=== PATIENT | female | born 1990 | race Asian ===

== ENCOUNTER 2017-01-16 18:30 | Inpatient (IN) | payer MEDICAID, SELFPAY ==
[~2017-01-16] VITALS: Ht 170.2 cm; Wt 60.3 kg
[2017-01-16] MEDS ORDERED: PREN-380 PO (19:17)
[2017-01-16 19:40] VITALS: BP 124/81
[2017-01-16] MEDS ORDERED: OXYTOCIN 10 UNITS/ML VIAL IM SCH (19:55)
[2017-01-16] MEDS ORDERED: PROMETHAZINE 25 MG/ML VIAL IVP PRN (19:55)
[2017-01-16] MEDS ORDERED: METHYLERGONOVINE 0.2 MG/ML AMP IM PRN (19:55)
[2017-01-16] MEDS ORDERED: NALBUPHINE HYDROCHLORIDE 10 MG/ML VIAL IVP PRN (19:55)
[2017-01-16] MEDS ORDERED: LACTATED RINGERS 500 ML IV SCH (19:55)
[2017-01-16] MEDS ORDERED: CARBOPROST 250 MCG/ML AMP IM PRN (19:55)
[2017-01-16] MEDS ORDERED: AMPICILLIN 2,000 MG in NACL 0.9% MINI-BAG PLUS 100 ML IV SCH (19:55)
[2017-01-16] MEDS ORDERED: OXYTOCIN 20 UNITS in LACTATED RINGERS 1,000 ML IV SCH (20:44)
[2017-01-16 20:53] LABS: APPEARANCE,URINE HAZY (CLEAR); BILIRUBIN,URINE NEGATIVE (NEGATIVE); BLOOD, URINE 3+ (NEGATIVE); COLOR,URINE YELLOW (YELLOW); LEUKOCYTE ESTERASE ,URINE NEGATIVE (NEGATIVE); NITRITE, URINE NEGATIVE (NEGATIVE); UGLUCOSE 2+ (NEGATIVE)
[2017-01-16] MEDS ORDERED: OXYTOCIN 20 UNITS/LR PREMIX 1,000 ML IV ONE (20:54)
[2017-01-16 20:57] LABS: BASOPHILS # (AUTO) 0.1 K/uL (0.00-0.22); BASOPHILS % (AUTO) 0.8 % (0.0-2.0); EOSINOPHILS # (AUTO) 0.1 K/uL (0-0.4); EOSINOPHILS % (AUTO) 0.6 % (0.0-4.0); HEMATOCRIT 38.9 % (36-48); HEMOGLOBIN 13.2 g/dL (12.0-16.0); LYMPHOCYTES % (AUTO) 23.7 % (20.5-51.1); MEAN CORPUSCULAR HEMOGLOBIN 32 pg (27-31); MEAN CORPUSCULAR HGB CONC 34 g/dL (33-37); MEAN CORPUSCULAR VOLUME 93 fL (80-94); MONOCYTES # (AUTO) 0.7 K/uL (0.8-1.0); MONOCYTES % (AUTO) 7.7 % (1.7-9.3); NEUTROPHILS # (AUTO) 5.6 K/uL (1.8-7.7); NEUTROPHILS % (AUTO) 67.2 % (42.2-75.2); PLATELET COUNT (AUTO) 158 K/uL (140-450); RED BLOOD CELL COUNT(AUTO) 4.18 MIL/uL (4.20-5.40); RED CELL DISTRIBUTION WIDTH 12.9 % (11.6-13.7); WHITE BLOOD COUNT (AUTO) 8.5 K/uL (4.8-10.8)
[2017-01-16 20:59] LABS: RBC,URINE 11-20 (MOD) /HPF (0-5); WBC,URINE 0-5 (RARE) /HPF (0-5)
[2017-01-16] MEDS: LACTATED RINGERS 1,000 ML IV SCH ×2 (21:02→23:43)
[2017-01-17] MEDS ORDERED: BUPIVACAINE 0.125%/NS PREMIX 250 ML ONE (00:10)
[2017-01-17] MEDS ORDERED: AMPICILLIN 2,000 MG VIAL ONE (02:18)
[2017-01-17] MEDS: AMPICILLIN 1,000 MG in NACL 0.9% MINI-BAG PLUS 50 ML IV SCH ×2 (06:07→10:08)
[2017-01-17] MEDS ORDERED: AMPICILLIN 1,000 MG VIAL ONE ×2 (06:09→10:11)
[2017-01-17 07:15] LABS: RAPID PLASMA REAGIN NON-REACTIVE (Non Reactiv)
[2017-01-17] MEDS ORDERED: oxyCODONE/APAP 5/325 MG 1 TAB TAB PO PRN (09:35)
[2017-01-17] MEDS ORDERED: OXYTOCIN 10 UNITS/ML VIAL IM PRN (09:35)
[2017-01-17] MEDS ORDERED: MEASLES, MUMPS, AND RUBELLA 1 VIAL SQVAC PRN (09:35)
[2017-01-17] MEDS ORDERED: BENZOCAINE/MENTHOL 20%-0.5% 60 GM CAN TP PRN (09:35)
[2017-01-17] MEDS ORDERED: TEMAZEPAM 15 MG CAP PO PRN (09:35)
[2017-01-17] MEDS ORDERED: METHYLERGONOVINE 0.2 MG/ML AMP IM PRN (09:35)
--- NOTE | 2017-01-17 09:35 | NUR ---
PATIENT HAS BEEN SCREENED AND CATEGORIZED LOW NUTRITION RISK. PATIENT WILL BE SEEN WITHIN 7 DAYS OF ADMISSION. 01/23/[address]
[2017-01-17] MEDS ORDERED: OXYTOCIN 10 UNITS/ML VIAL ONE (10:19)
[2017-01-17] MEDS: HYDROcodone/APAP 5/325 MG 1 TAB TAB PO PRN ×2 (19:41→23:59)
[2017-01-17] MEDS ORDERED: DOCUSATE SOD/SENNA 50/8.6 MG 1 TAB PO SCH (21:00)
[2017-01-18] MEDS: IBUPROFEN 800 MG TAB PO PRN ×2 (04:36→15:36)
[2017-01-18 07:35] LABS: HEMATOCRIT 31.3 % (36-48); HEMOGLOBIN 10.4 g/dL (12.0-16.0)
[2017-01-18] MEDS ORDERED: IBUP200S18 PO (09:41)
[2017-01-18] MEDS ORDERED: IBUP-2213 PO (09:46)
[2017-01-19] MEDS: IBUPROFEN 800 MG TAB PO PRN (06:06)
--- NOTE | 2017-01-22 15:32 | NUR ---
CM NOTE RETRO REVIEW FAXED TO [facility] [employer] / FAX# [phone], ATTN: ED #[phone]
== END 2017-01-19 13:30 | disposition home or self-care (01) | DRG 560 ==
LOC: MLD 18:30 → MFCC 01-17 12:45
PROVIDERS: ADMIT Obstetrics & Gynecology; ATTEND Obstetrics & Gynecology
PROC: 10E0XZZ Delivery of Products of Conception, External Approach (ICD-10-PCS; principal; 2017-01-17)
PROC: 0W8NXZZ Division of Female Perineum, External Approach (ICD-10-PCS; 2017-01-17)
PROC: 3E0234Z Introduction of Serum, Toxoid and Vaccine into Muscle, Percutaneous Approach (ICD-10-PCS; 2017-01-17)
PROC: 3E0S3CZ (ICD-10-PCS; 2017-01-17)
PROC: 00HU33Z Insertion of Infusion Device into Spinal Canal, Percutaneous Approach (ICD-10-PCS; 2017-01-17)
DX: O75.89 Other specified complications of labor and delivery (principal); Z23 Encounter for immunization; Z37.0 Single live birth; Z3A.38 38 weeks gestation of pregnancy
CPT/HCPCS: 36415; 51702; 59409; 81001; 85018; 85025; 86592; 86886; 86900; 86901; 87086; 90715; J0290; J2590; J3490; J7120

== ENCOUNTER 2017-04-21 20:38 | Emergency (ER) | payer MEDICAID ==
[~2017-04-21] VITALS: Ht 170.2 cm; Wt 53.2 kg
[~2017-04-21 20:38] MED LIST: IBUP-2213 PO; PREN-380 PO
[2017-04-21 20:53] VITALS: BP 114/63
--- NOTE | 2017-04-21 20:56 | NUR ---
PT RETURNED TO LOBBY
--- NOTE | 2017-04-21 21:24 | NUR ---
NOSE SWAB DONE BY KANU FUNEZ-THEN SENT TO LAB
--- NOTE | 2017-04-21 21:45 | NUR ---
PT AMBULATED TO ER OF4 AT 214
--- NOTE | 2017-04-21 21:46 | NUR ---
PATIENT IS A 27 Y/O FEMALE WHO PRESENTS TO THE ED C/O FLU SYMPTOMS. PT STATES, "I HAVE BEEN FEELING AWFUL FOR A FEW DAYS." REPORTS . PT REPORTS 8/10 ACHING ABD PAINT THAT DOES NOT RADIATE. PT DENIES CP, SOB, REPORTS NAUSEA/DIARRHEA DENIES VOMITING. PT AAOX4, RR EVEN/UNLABORED. PT REPOSITIONED FOR COMFORT, ER MD DR. LOBATO NOTIFIED. WILL CONTINUE TO MONITOR.
[2017-04-21] MEDS ORDERED: ONDANSETRON 4 MG ODT PO ONE (22:30)
[2017-04-21] MEDS ORDERED: KETOROLAC 30 MG/ML VIAL IM ONE (23:00)
--- NOTE | 2017-04-21 23:00 | NUR ---
Pt report given to MILANA BOBBY. Transfer of care at this time.
--- NOTE | 2017-04-21 23:00 | NUR ---
PT AMB TO ER BED 12, ER MD NOTIFTED.
--- NOTE | 2017-04-21 23:07 | NUR ---
Gayle coronado in ED - 04/21/17 at 2308 by [facility] MOVED TO ER BED 12
[2017-04-21] MEDS ORDERED: NACL 0.9% 1,000 ML IV ONE (23:30)
[2017-04-21 23:52] VITALS: BP 111/66
--- NOTE | 2017-04-21 23:54 | NUR ---
Patient discharged with v/s stable. Written and verbal after care instructions given and explained. Patient alert, oriented and verbalized understanding of instructions. Ambulatory with steady gait. All questions addressed prior to discharge. ID band removed. Patient advised to follow up with PMD. Rx of REGLAN 10MG Q12HRS/PRN given. Patient educated on indication of medication including possible reaction and side effects. Opportunity to ask questions provided and answered.
== END 2017-04-21 23:52 | disposition home or self-care (01) ==
LOC: MED 20:38
DX: A08.4 Viral intestinal infection, unspecified (principal); R19.7 Diarrhea, unspecified; Z79.899 Other long term (current) drug therapy
CPT/HCPCS: 36415; 81002; 81025; 87804; 96372; 99284; J1885; S0119